=== PATIENT | female | born 1960 | race African-American/Black ===

== ENCOUNTER 2017-08-19 00:13 | Inpatient (IN) | payer BC ==
[~2017-08-19] VITALS: Ht 165.1 cm; Wt 65.8 kg
[2017-08-19 02:30] VITALS: BP 132/79
[2017-08-19] MEDS ORDERED: Nitroglycerin Subl 0.4mg tab SL PRN (04:00)
[2017-08-19 04:35] VITALS: BP 137/74
[2017-08-19 05:19] LABS: BASOPHILS % (AUTO) 1.3 % (0.0-2.0); EOSINOPHILS % (AUTO) 1.9 % (0.0-3.0); LYMPHOCYTES % (AUTO) 44.8 % (20.0-45.0); MEAN CORPUSCULAR HEMOGLOBIN 31.3 PG (27.0-31.0); MEAN CORPUSCULAR HGB CONC 33.6 G/DL (32.0-36.0); MEAN CORPUSCULAR VOLUME 93 FL (80-99); MEAN PLATELET VOLUME 7.4 FL (6.5-10.1); PLATELET COUNT 347 K/UL (150-450); RED BLOOD COUNT 4.42 M/UL (4.20-5.40); WHITE BLOOD COUNT 9.6 K/UL (4.8-10.8)
[2017-08-19 06:02] LABS: ALANINE AMINOTRANSFERASE 20 U/L (12-78); ALBUMIN/GLOBULIN RATIO 1.1 (1.0-2.7); ANION GAP 7 mmol/L (5-15); ASPARTATE AMINO TRANSFERASE 17 U/L (15-37); CARBON DIOXIDE 29 MMOL/L (21-32); CHLORIDE 101 MMOL/L (98-107); CHOLESTEROL 205 MG/DL (< 200); CHOLESTEROL/HDL RATIO 4.3 (3.3-4.4); CREATININE 0.9 MG/DL (0.55-1.30); GLOMERULAR FILTRATION RATE > 60 mL/min (>60); PHOSPHORUS 3.8 MG/DL (2.5-4.9); POTASSIUM 3.6 MMOL/L (3.5-5.1); SODIUM 136 MMOL/L (136-145); THYROID STIMULATING HORMONE 2.048 uiU/mL (0.358-3.740); TOTAL PROTEIN 6.8 G/DL (6.4-8.2)
[2017-08-19 08:00] VITALS: BP 113/61
[2017-08-19] MEDS ORDERED: Aspirin Baby 81mg ORAL SCH (09:00)
[2017-08-19] MEDS ORDERED: Heparin 5000 units/ml inj SUBQ SCH (09:00)
[2017-08-19 12:00] VITALS: BP 129/57
--- NOTE | 2017-08-19 12:06 | Consultation ---
History of Present Illness General Date patient seen: Aug 19, 2017 Referring physician: Dr. carter Reason for Consultation: inpatient management Present Illness HPI 57 year old female with hx of (Starr Castañeda) was taken to [facility] with CC of palpitaions for a few hours, No CP or SOB. She has a hx of short OR. she was initially evaluated at [place] and transferred to [facility] [place]. Currently she is asymptomatic and wants to leave as soon as possible. Allergies: Coded Allergies: NO KNOWN ALLERGIES (Verified Allergy, Unknown, 08/19/17) no known allergies Patient History Healthcare decision maker Resuscitation status Full Code Advanced Directive on File Past Medical/Surgical History Past Medical/Surgical History: (1) Palpitations Review of Systems All Other Systems: negative except mentioned in HPI Physical Exam General Appearance: WD/WN Lines, tubes and drains: peripheral HEENT: normocephalic Neck: non-tender, supple Respiratory/Chest: chest wall non-tender, lungs clear Breasts: no masses Cardiovascular/Chest: normal peripheral pulses Abdomen: normal bowel sounds Genitourinary/Rectal: normal genital exam Extremities: normal range of motion Last 24 Hour Vital Signs Date Time Temp Pulse Resp B/P (MAP) Pulse Ox O2 Delivery O2 Flow Rate FiO2 08/19/17 09:05 60 08/19/17 08:00 97.0 61 20 113/61 96 Room Air 08/19/17 04:35 97.8 55 20 137/74 96 Room Air 08/19/17 04:00 54 08/19/17 02:30 97.6 59 20 132/79 97 Room Air Laboratory Tests Test 08/19/17 03:15 White Blood Count 9.6 K/UL (4.8-10.8) Red Blood Count 4.42 M/UL (4.20-5.40) Hemoglobin 13.8 G/DL (12.0-16.0) Hematocrit 41.2 % (37.0-47.0) Mean Corpuscular Volume 93 FL (80-99) Mean Corpuscular Hemoglobin 31.3 PG (27.0-31.0) H Mean Corpuscular Hemoglobin Concent 33.6 G/DL (32.0-36.0) Red Cell Distribution Width 12.0 % (11.6-14.8) Platelet Count 347 K/UL (150-450) Mean Platelet Volume 7.4 FL (6.5-10.1) Neutrophils (%) (Auto) 45.0 % (45.0-75.0) Lymphocytes (%) (Auto) 44.8 % (20.0-45.0) Monocytes (%) (Auto) 7.0 % (1.0-10.0) Eosinophils (%) (Auto) 1.9 % (0.0-3.0) Basophils (%) (Auto) 1.3 % (0.0-2.0) Sodium Level 136 MMOL/L (136-145) Potassium Level 3.6 MMOL/L (3.5-5.1) Chloride Level 101 MMOL/L (98-107) Carbon Dioxide Level 29 MMOL/L (21-32) Anion Gap 7 mmol/L (5-15) Blood Urea Nitrogen 14 mg/dL (7-18) Creatinine 0.9 MG/DL (0.55-1.30) Estimat Glomerular Filtration Rate > 60 mL/min (>60) Glucose Level 78 MG/DL (74-106) Calcium Level 9.0 MG/DL (8.5-10.1) Phosphorus Level 3.8 MG/DL (2.5-4.9) Magnesium Level 2.0 MG/DL (1.8-2.4) Total Bilirubin 0.4 MG/DL (0.2-1.0) Aspartate Amino Transf (AST/SGOT) 17 U/L (15-37) Alanine Aminotransferase (ALT/SGPT) 20 U/L (12-78) Alkaline Phosphatase 46 U/L (46-116) Troponin I 0.000 ng/mL (0.000-0.056) Total Protein 6.8 G/DL (6.4-8.2) Albumin 3.6 G/DL (3.4-5.0) Globulin 3.2 g/dL Albumin/Globulin Ratio 1.1 (1.0-2.7) Triglycerides Level 85 MG/DL (30-150) Cholesterol Level 205 MG/DL (< 200) H LDL Cholesterol 144 mg/dL (<100) H HDL Cholesterol 48 MG/DL (40-60) Cholesterol/HDL Ratio 4.3 (3.3-4.4) Thyroid Stimulating Hormone (TSH) 2.048 uiU/mL (0.358-3.740) Height (Feet): 5 Height (Inches): 5.00 Weight (Pounds): 145 Medications Current Medications Medications (Trade) Dose Ordered Sig/Carla Route PRN Reason Start Time Stop Time Status Last Admin Dose Admin Acetaminophen (Tylenol) 650 mg Q6H PRN ORAL Mild Pain/Temp > 100.5 08/19/17 03:00 09/18/17 02:59 Aspirin (ASA) 81 mg DAILY ORAL 08/19/17 09:00 09/18/17 08:59 Heparin Sodium (Porcine) (Heparin 5000 units/ml) 5,000 units EVERY 12 HOURS SUBQ 08/19/17 09:00 09/18/17 08:59 Nitroglycerin (Ntg) 0.4 mg Q5MIN X 3 DOSES PRN SL Prn Chest Pain 08/19/17 04:00 09/18/17 03:59 Assessment/Plan Problem List: (1) Palpitations ICD Codes: R00.2 - Palpitations SNOMED: [id number] Assessment/Plan echo cardiogram cariology evaluation telemetry monitoring symptomatic treatment. DARLINE TIERNEY Aug 19, 2017 12:06
--- NOTE | 2017-08-19 13:20 | Cardiac Electrophysiology PN ---
Subjective Subjective Dictated [id number]. 1. LGL with no documentation of SVT. NH now NL. EM as out patient. 2. Inferior wall T wave changes. Refusing stress test/ says had one with her puller through. Objective Last 24 Hour Vital Signs Date Time Temp Pulse Resp B/P (MAP) Pulse Ox O2 Delivery O2 Flow Rate FiO2 08/19/17 09:05 60 08/19/17 08:00 97.0 61 20 113/61 96 Room Air 08/19/17 04:35 97.8 55 20 137/74 96 Room Air 08/19/17 04:00 54 08/19/17 02:30 97.6 59 20 132/79 97 Room Air Laboratory Tests Test 08/19/17 03:15 White Blood Count 9.6 K/UL (4.8-10.8) Red Blood Count 4.42 M/UL (4.20-5.40) Hemoglobin 13.8 G/DL (12.0-16.0) Hematocrit 41.2 % (37.0-47.0) Mean Corpuscular Volume 93 FL (80-99) Mean Corpuscular Hemoglobin 31.3 PG (27.0-31.0) H Mean Corpuscular Hemoglobin Concent 33.6 G/DL (32.0-36.0) Red Cell Distribution Width 12.0 % (11.6-14.8) Platelet Count 347 K/UL (150-450) Mean Platelet Volume 7.4 FL (6.5-10.1) Neutrophils (%) (Auto) 45.0 % (45.0-75.0) Lymphocytes (%) (Auto) 44.8 % (20.0-45.0) Monocytes (%) (Auto) 7.0 % (1.0-10.0) Eosinophils (%) (Auto) 1.9 % (0.0-3.0) Basophils (%) (Auto) 1.3 % (0.0-2.0) Sodium Level 136 MMOL/L (136-145) Potassium Level 3.6 MMOL/L (3.5-5.1) Chloride Level 101 MMOL/L (98-107) Carbon Dioxide Level 29 MMOL/L (21-32) Anion Gap 7 mmol/L (5-15) Blood Urea Nitrogen 14 mg/dL (7-18) Creatinine 0.9 MG/DL (0.55-1.30) Estimat Glomerular Filtration Rate > 60 mL/min (>60) Glucose Level 78 MG/DL (74-106) Calcium Level 9.0 MG/DL (8.5-10.1) Phosphorus Level 3.8 MG/DL (2.5-4.9) Magnesium Level 2.0 MG/DL (1.8-2.4) Total Bilirubin 0.4 MG/DL (0.2-1.0) Aspartate Amino Transf (AST/SGOT) 17 U/L (15-37) Alanine Aminotransferase (ALT/SGPT) 20 U/L (12-78) Alkaline Phosphatase 46 U/L (46-116) Troponin I 0.000 ng/mL (0.000-0.056) Total Protein 6.8 G/DL (6.4-8.2) Albumin 3.6 G/DL (3.4-5.0) Globulin 3.2 g/dL Albumin/Globulin Ratio 1.1 (1.0-2.7) Triglycerides Level 85 MG/DL (30-150) Cholesterol Level 205 MG/DL (< 200) H LDL Cholesterol 144 mg/dL (<100) H HDL Cholesterol 48 MG/DL (40-60) Cholesterol/HDL Ratio 4.3 (3.3-4.4) Thyroid Stimulating Hormone (TSH) 2.048 uiU/mL (0.358-3.740) LUL BE Aug 19, 2017 13:20
--- NOTE | 2017-08-19 21:15 | History and Physical Report ---
DATE OF ADMISSION: 08/19/2017 CHIEF COMPLAINT: The patient is a 57-year-old -[place] female, who presents with chief complaint of heart palpitations. HISTORY OF PRESENT ILLNESS: Began yesterday 08/18/2017. The patient began to have "palpitations." This lasted a few hours and then resolved. Restarted approximately 2 hours later. The patient presented initially to [facility] emergency room. The patient is transferred to [facility] for insurance purposes. The patient is admitted for palpitations to rule out cardiac arrhythmia versus acute coronary syndrome. PAST MEDICAL HISTORY: Significant for: 1. Hypercholesterolemia. 2. Wpbn-Sxojax-Iypttq per history. PAST SURGICAL HISTORY: The patient denies. CURRENT MEDICATIONS: The patient denies. ALLERGIES: No known drug allergies. SOCIAL HISTORY: The patient is . The patient denies tobacco or alcohol. REVIEW OF SYSTEMS: CONSTITUTIONAL: The patient denies weight loss or weight gain. The patient denies fevers or chills. HEENT: The patient denies ear or throat pain. The patient denies headache. CARDIOVASCULAR: The patient complains of palpitations as above. The patient denies chest pain. ABDOMEN: The patient denies nausea, vomiting, diarrhea, or constipation. CHEST: The patient denies wheezes or shortness of breath. NEUROLOGICAL: The patient denies seizures or generalized weakness. GENITOURINARY: The patient denies dysuria or increased frequency of urination. PHYSICAL EXAMINATION: VITAL SIGNS: Temperature 97.6, respirations 20, pulse 59, and blood pressure 132/79. GENERAL: The patient is a well-developed, well-nourished, -[place] female, in no apparent distress. HEENT: Eyes, pupils are equal and responsive to light and accommodation. Extraocular movements are intact. NECK: Supple without lymphadenopathy. CHEST: Lungs are clear to auscultation bilaterally without wheezes or rales. CARDIOVASCULAR: Regular rhythm and rate. S1 and S2 are normal without murmurs, rubs, or gallops. ABDOMEN: Soft, nontender, and nondistended. Positive bowel sounds. No evidence of hepatosplenomegaly. Currently, no rebound or guarding noted. EXTREMITIES: Negative for clubbing, cyanosis, or edema. RECTAL/GENITAL: Refused. NEUROLOGIC: Cranial nerves II through XII are grossly intact without focal deficits. Motor strength is 5/5 bilaterally. Deep tendon reflexes are 2+ plantar. LABORATORY AND DIAGNOSTIC STUDIES: WBC 9.8, hemoglobin 14.4, hematocrit 41.7, and platelets 247,000. Sodium 134, potassium 3.4, chloride 80, CO2 27, BUN 10, creatinine 1.13 and glucose 129. EKG demonstrated normal sinus rhythm at approximately 85 beats per minute. There was a prolonged LA interval at 118, otherwise within normal limits. ASSESSMENT: This is a 57-year-old -[place] female: 1. Heart palpitations. 2. Rzrs-Kvarwk-Lsntls syndrome. TREATMENT: Palpitation/Vvad-Jrasun-Bcrsit syndrome. A Cardiology consultation has been obtained with Dr. Emile Perez. We will follow recommendation of Cardiology. The patient is admitted to the [facility] unit. Tripp Danielle M.D. DR: WINIFRED JOB#: [id number] CC:
--- NOTE | 2017-08-19 23:31 | Consultation ---
DATE OF CONSULTATION: 08/19/2017 CARDIAC ELECTROPHYSIOLOGY CONSULTATION CONSULTING PHYSICIAN: Emile Perez M.D. REFERRING PHYSICIAN: Brenden Foster M.D. ADDITIONAL REFERRING PHYSICIAN: Patti Patel M.D. REASON FOR CONSULTATION: Palpitation in patient with Yhjq-Xgzmju-Achiva. HISTORY OF PRESENT ILLNESS: The patient is a 57-year-old lady with a history of short DE interval and Qelf-Wacgbv-Fnkpho, who was taken to [facility] complaining of palpitation of few hours duration. The patient did not have any chest pain or shortness of breath. The patient was then transferred from [place] to [facility], as the two EKGs were different in regards to inferior ischemia. The patient was then transferred to [facility]. She states that she had a recent stress test by her biomedical equipment specialist and was done. PAST MEDICAL HISTORY: 1. Short DE interval and Ikzo-Ljdbjm-Hyrgpb. 2. History of anxiety. SOCIAL HISTORY: She lives at home. Does not smoke or drink alcohol. FAMILY HISTORY: Noncontributory. REVIEW OF SYSTEMS: Negative other than what was mentioned in history of present illness. PHYSICAL EXAMINATION: VITAL SIGNS: Blood pressure is 113/61, pulse is 61, respirations 18, and she is afebrile. HEAD AND NECK: Showed no JVD or carotid bruits. LUNGS: Clear. CARDIOVASCULAR: Shows regular S1 and S2 with no gallop or murmur. ABDOMEN: Soft. EXTREMITIES: No pitting edema. LABORATORY AND DIAGNOSTIC DATA: Labs show white count of 9.6, hemoglobin 13.8, and hematocrit 41.2. Sodium 136, potassium 3.6, BUN 14, and creatinine 0.9. Troponin is negative. Her initial EKG on 08/19/2017 showed normal sinus rhythm and normal electrocardiogram. At [place], the second EKG on 08/18/2017 showed sinus rhythm with inferior ischemia. Her white count is 9.6, hemoglobin 13.8, hematocrit 41.2, and platelet count 347,000. Troponin is negative. Sodium 136, potassium 3.6, BUN 14, and creatinine 0.9. ASSESSMENT AND PLAN: 1. Palpitation. No supraventricular tachycardia was documented. The patient has history of short DE interval and Ntkh-Eqvxya-Gllznv, but currently the DE interval is borderline above the normal. No ST-T was documented. The patient likely will benefit from monitoring as an outpatient for further evaluation of her palpitations. 2. Abnormal electrocardiogram with a second degree suggestive of inferior wall ischemia. I offered the patient to undergo a nuclear stress test for further evaluation. However, she is refusing as she just had a recent stress test at her biomedical equipment specialist's office and actually wants to leave the hospital as soon as possible. It is also noted that her echocardiogram showed normal ejection fraction of 60% to 65%. Thank you very much, Dr. Foster and Dr. Patel, for allowing me to participate in the care of this patient. Please do not hesitate to contact me for any questions regarding my evaluation. Emile Perez M.D. DR: Nella JOB#: [id number] CC:
--- NOTE | 2017-08-20 11:00 | Cardiology Report ---
APPROVED REPORT EKG Measurement Heart [id number] Sinus bradycardia Rightward axis Borderline ECG
--- NOTE | 2017-08-20 11:03 | Cardiology Report ---
APPROVED REPORT EXAM: Two-dimensional and M-mode echocardiogram with Doppler and color Doppler. INDICATION Chest Pain M-Mode DIMENSIONS IVSd1.2 (0.7-1.1cm)Left Atrium (MM)3.6 (1.6-4.0cm) LVDd2.9 (3.5-5.6cm)Aortic Root2.9 (2.0-3.7cm) PWd2.0 (0.7-1.1cm)Aortic Cusp Exc.1.7 (1.5-2.0cm) LVDs1.9 (2.5-4.0cm) PWs2.6 cm Normal left ventricular chamber size, systolic function and wall motion. Left ventricular ejection fraction estimated to be 60-65%. No evidence of left ventricular hypertrophy. No evidence of pericardial effusion. Mild left atrial enlargement. Right cardiac chamber sizes are within normal limits. Mild focal aortic valve sclerosis with adequate cusp excursion. Mildly thickened mitral valve leaflets with normal excursion. Mild mitral annulus and aortic root calcification. Pulmonic valve not well visualized. Normal tricuspid valve structure. IVC measured at 2.2 cm with physiologic collapse. A color flow and spectral Doppler study was performed and revealed: No aortic regurgitation. Mild mitral regurgitation. Mitral diastolic velocities indicate normal diastolic function. Trace tricuspid regurgitation. Tricuspid systolic velocities suggests peak right ventricular systolic pressure of 16 mmHg. No pulmonic regurgitation present.
--- NOTE | 2017-08-20 16:15 | Discharge Summary ---
Discharge Summary Hospital Course Date of Admission Aug 19, 2017 at 02:23 Date of Discharge Aug 19, 2017 at 15:09 Admitting Diagnosis HPI Luz Marina Alvarado is a 57 year old female who was admitted on Aug 19, 2017 at 02: 23 for Ekg Changes, Palpitations Hospital Course [id number] Discharge Discharge Disposition Patient left AMA Discharge Diagnoses: Shelby Roberts NP Aug 20, 2017 16:15
--- NOTE | 2017-08-21 03:00 | Discharge Summary 2 SIG ---
DATE OF ADMISSION: 08/19/2017 DATE OF DISCHARGE: 08/19/2017 E LEARNING SPECIALIST: Emile Perez M.D. BRIEF HOSPITAL COURSE: The patient is a 57-year-old female, who presented to ED complaining of heart palpitations that started on the day prior to admission, lasted few hours, and eventually resolved, however, restarted two hours later. She initially presented to [facility] emergency room and was transferred to [facility] for insurance purposes. She was admitted for palpitations to rule out cardiac arrhythmia versus acute coronary syndrome. EKG showed normal sinus rhythm at approximately 85 beats per minute. There was prolonged MA interval at 118, otherwise within normal limits. She was seen by Dr. Perez. The patient has history of Hmbo-Pvnphn-Hdxnzp. She presented with palpitations. No SVT was documented. She has a history of short MA intervals and Zrbv-Sehjra-Nzeqtx, but currently MA interval is borderline above the normal. No ST to T-wave was documented. Abnormal electrocardiogram with second-degree suggestive of inferior wall myocardial infarction. She was offered to undergo a nuclear stress test for further evaluation, however, the patient refused. It was also noted that her echocardiogram showed ejection fraction 60% to 65%. Full treatment was not carried out as the patient signed out against medical advice. FINAL DIAGNOSES: 1. Heart palpitations. 2. Hweb-Mzxsyx-Iatroz syndrome. 3. Abnormal electrocardiogram with second degree suggestive of inferior wall ischemia. DISPOSITION: The patient left against medical advice. Brenden Foster M.D. I have been assigned to dictate discharge summary on this account and I was not involved in the patient's management. Shelby Roberts N.P. DR: SHAN JOB#: [id number] CC:
== END 2017-08-19 15:09 | disposition left against medical advice (07) | DRG 310 ==
LOC: 2W 02:23
DX: R00.2 Palpitations (principal); I45.6 Pre-excitation syndrome; E78.00 Pure hypercholesterolemia, unspecified; R94.31 Abnormal electrocardiogram [ECG] [EKG]; Z53.21 Procedure and treatment not carried out due to patient leaving prior to being seen by health care provider
CPT/HCPCS: 36415; 80053; 80061; 83735; 84100; 84443; 84484; 85025; 93005; 93306